=== PATIENT | male | born 1995 | race Caucasian/White ===

== ENCOUNTER → 2016-04-09 | Outpatient (CLI) | payer OTHER ==
--- NOTE | 2016-04-10 07:25 | XR ---
EXAMINATION TYPE: XR thoracic spine 2V DATE OF EXAM: 04/09/2016 5:36 PM CLINICAL HISTORY: pain TECHNIQUE: Frontal, lateral, and swimmer's view of thoracic spine are obtained. COMPARISON: None. FINDINGS: Thoracic spine show satisfactory alignment without evidence of acute fracture or dislocatio n. Mild scoliotic curvature is noted. Vertebral body heights are preserved. Disc spaces are well pre served. Visualized ribs are unremarkable. IMPRESSION: No acute fracture or dislocation is seen in the thoracic spine. ICD 10 NO FRACTURE, INIT IAL EVALUATION
--- NOTE | 2016-04-10 07:26 | XR ---
EXAMINATION TYPE: XR lumbosacral spine min 4V DATE OF EXAM: 04/09/2016 5:36 PM CLINICAL HISTORY: pain COMPARISON: NONE TECHNIQUE: Frontal, lateral, and oblique images of the lumbar spine are obtained. FINDINGS: There are 5 lumbar type vertebral bodies identified. The lumbar spine shows satisfactory alignment without evidence of acute fracture or dislocation. Vertebral body heights are within normal limits. Disc spaces are well preserved. The overlying soft tissue appears unremarkable. IMPRESSION: No acute fracture or dislocation is seen in the lumbar spine.ICD 10 NO FRACTURE, INITIAL EVALUATION
== END | disposition home or self-care (01) ==
LOC: RADXRMAIN 16:57
PROVIDERS: ATTEND Family Medicine
DX: M54.5 Low back pain (principal); M54.6 Pain in thoracic spine
CPT/HCPCS: 72070; 72110

== ENCOUNTER 2016-10-17 14:12 | Inpatient (IN) | payer MEDICAID, OTHER ==
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
[2016-10-17] MEDS ORDERED: LORazepam 1 MG TAB PO PRN (18:56)
[2016-10-17] MEDS ORDERED: MAG HYDROX/AL HYDROX/SIMETH 30 ML CUP PO PRN (18:56)
[2016-10-17] MEDS ORDERED: MAGNESIUM HYDROXIDE 2,400 MG/10 ML CUP PO PRN (18:56)
[2016-10-17] MEDS ORDERED: ACETAMINOPHEN TAB 325 MG TAB PO PRN (18:56)
[2016-10-17] MEDS ORDERED: ZIPRASIDONE 20 MG VIAL IM PRN (18:56)
[2016-10-17] MEDS ORDERED: LORazepam 2 MG/ML SYRINGE IM PRN (18:58)
[2016-10-17 19:17] LABS: Appearance,Urine Clear (Clear); Bilirubin,Urine Negative (Negative); Glucose,Urine (UA) Negative (Negative); Ketones,Urine Negative (Negative); Leukocyte Esterase,Urine Negative (Negative); Nitrite,Urine Negative (Negative); Protein,Urine Negative (Negative); Specific Gravity,Urine 1.019 (1.001-1.035); UA Billing (MACRO vs. MICRO) CHEM; Urobilinogen,Urine <2.0 mg/dL (<2.0)
[2016-10-17] MEDS: ALBUTEROL INHALER 60 PUFF/8 GM INHALER INHALATION PRN (21:41)
[2016-10-17] MEDS: SYMBICORT 80-4.5 MCG INHALER INHALATION SCH (21:42)
[2016-10-18 08:05] LABS: Basophils # (A) 0.1 k/uL (0-0.2); Basophils % (A) 1 %; CHCM 35.2; Eosinophils # (A) 0.2 k/uL (0-0.7); Eosinophils % (A) 4 %; HCT 44.9 % (39.0-53.0); HGB 15.1 gm/dL (13.0-17.5); Luc # (Auto) 0.16; Luc % (Auto) 3; Lymphocytes # (A) 1.6 k/uL (1.0-4.8); Lymphocytes % (A) 31 %; MCH 30.7 pg (25.0-35.0); MCHC 33.7 g/dL (31.0-37.0); MCV 91.2 fL (80.0-100.0); Mean Platelet Volume 7.7; Monocytes # (A) 0.3 k/uL (0-1.0); Monocytes % (A) 6 %; Neutrophils # (A) 2.7 k/uL (1.3-7.7); Neutrophils % (A) 55 %; RBC 4.92 m/uL (4.30-5.90); WBC (Perox) 5.17
[2016-10-18 08:35] LABS: ALT 29 U/L (21-72); AST 18 U/L (17-59); Alkaline Phosphatase 49 U/L (38-126); Anion Gap 11 mmol/L; Blood Urea Nitrogen 17 mg/dL (9-20); Calcium 9.8 mg/dL (8.4-10.2); Carbon Dioxide 24 mmol/L (22-30); Chloride 105 mmol/L (98-107); Glucose 86 mg/dL (74-99); Non-African American GFR(MDRD) >60 (>60 ml/min/1.73 sqM); Potassium 4.7 mmol/L (3.5-5.1); Sodium 140 mmol/L (137-145); Total Protein 7.8 g/dL (6.3-8.2)
[2016-10-18] MEDS: NICOTINE 14MG/24HR PATCH TRANSDERM SCH (08:55)
[2016-10-18] MEDS: SYMBICORT 80-4.5 MCG INHALER INHALATION SCH ×2 (09:01→21:21)
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
[2016-10-18] MEDS: CITALOPRAM HYDROBROMIDE 10 MG TAB PO SCH (11:05)
[2016-10-18 11:36] VITALS: BMI 16.5
--- NOTE | 2016-10-18 15:38 | P.CONS ---
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 Patient apparently has had some issues with substance abuse in the past The patient is fairly healthy without any medical problems Patient denies having any headaches blurry vision nausea vomiting chest pain difficulty breathing abdominal pain diarrhea urinary urgency or frequency Patient today states that he does not have any suicidal or homicidal ideations The only complaint is that he complains of intermittent headaches bitemporal q1 week however this is able to be resolved without any intervention Review of systems 14 point review of systems was done nonpertinent was manageable Physical exam Gen. appearance oriented 3 in no distress Neck is supple no JVD Lungs good air entry clear to auscultation no rhonchi or wheezing Heart S1-S2 heard regular rate and rhythm no murmurs appreciated Abdomen is soft nontender no organomegaly bowel sounds are intact Neurologically cranial nerves II-12 grossly intact no focal motor or sensory deficits noted Skin no abnormalities appreciated Assessment and plan #1 major depression with suicidal ideation para graft #2 pressure headaches #3 polysubstance use Plan Thank you for the consultation no further workup is needed patient is stable 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 History of Any Multi-Drug Resistant Organisms: None Reported Past Surgical History: Orthopedic Surgery Past Psychological History: ADD/ADHD, Anxiety, Depression Smoking Status: Current every day smoker Past Alcohol Use History: Rare Past Drug Use History: Marijuana Medications and Allergies Home Medications Medication Instructions Recorded Confirmed Type Albuterol Sulfate [Ventolin HFA] 2 puff INHALATION RT-Q4H PRN 07/28/13 10/17/16 History Fluticasone/Salmeterol [Advair 1 puff INHALATION RT-BID 10/17/16 10/17/16 History 250-50 Diskus] busPIRone HCl [Buspar] 5 mg PO BID 10/17/16 10/17/16 History Allergies Allergy/AdvReac Type Severity Reaction Status Date / Time No Known Allergies Allergy Verified 10/17/16 14:45 Physical Exam Vitals: Vital Signs Temp Pulse Pulse Resp BP BP Pulse Ox 10/18/16 06:45 98.2 F 48 L 16 98/56 95 10/17/16 21:38 70 16 114/78 10/17/16 18:52 98.7 F 72 15 96/70 15 L 10/17/16 17:58 65 18 105/64 97 Intake and Output 10/18/16 10/18/16 10/18/16 06:59 14:59 22:59 Other: Weight 50.802 kg Patient Weight 10/19/16 06:59 Weight 50.802 kg Results CBC & Chem 7: 10/18/16 07:39 10/18/16 07:39
[2016-10-18] MEDS: MELATONIN 3 MG TABLET PO SCH (20:08)
[2016-10-18] MEDS: ALBUTEROL INHALER 60 PUFF/8 GM INHALER INHALATION PRN (21:21)
[2016-10-19] MEDS: NICOTINE 14MG/24HR PATCH TRANSDERM SCH (08:25)
[2016-10-19] MEDS: CITALOPRAM HYDROBROMIDE 10 MG TAB PO SCH (08:26)
[2016-10-19] MEDS: ALBUTEROL INHALER 60 PUFF/8 GM INHALER INHALATION PRN ×3 (09:31→22:10)
[2016-10-19] MEDS: SYMBICORT 80-4.5 MCG INHALER INHALATION SCH ×2 (09:32→21:51)
--- NOTE | 2016-10-19 10:45 | P.PN ---
Progress Note - Text Interval History: Patient is a 21-year-old male who is seen today and he reports that he is doing much better, he states he slept well last evening stating it felt like he slept for a week. Patient reports his anxiety is much less as well as his depression. He states he is feeling much better and no longer having any suicidal thoughts. Patient states that he has no side effects from the medication. Patient states that he spoke with the social problems specialist regarding a family meeting and wants to have it on the day of discharge. Mental Status: Appearance/Attitude: Patient is neatly groomed, makes good eye contact and is cooperative. Behavior: Patient does not display any psychomotor agitation or retardation. Speech/Language: Patient's speech is spontaneous and of normal volume and rhythm and he is coherent. Thought Process: Patient is goal-directed and there is no evidence of circumstantial or tangential thought and no loose associations or flight of ideas. Thought Content: Patient denies any auditory or visual hallucinations no delusions or paranoid ideation were elicited. The patient reports that he is feeling much less anxious and depressed and states that he slept well last evening. He reports no side effects from the medication. Suicidal/Homicidal Ideation: Patient denies any current suicidal or homicidal ideation. Sensorium/Cognition: Patient is alert and oriented to person, place, and time and his memory is grossly intact. Mood/Affect: Patient's mood is brighter and his affect is appropriate. Insight/Judgement: Patient's insight and judgment are fair. Assessment: Patient reports he is doing much better, having slept well last night as well as feeling much less anxious and depressed. He states that he is no longer having any suicidal ideation and states that he is feeling calm or than he has before. He reports no side effects from the medication. Plan: Patient will continue on Celexa 10 mg and melatonin 3 mg at bedtime and we discussed possible discharge early in the week and he was agreeable with this. Patient reports he will be turning to live with his ex-girlfriend's parents.
[2016-10-19] MEDS: MELATONIN 3 MG TABLET PO SCH (20:06)
[2016-10-19] MEDS ORDERED: HYDROCORTISONE 1% CREAM 30 GM TUBE TOPICAL PRN (20:19)
[2016-10-19] MEDS: NICOTINE POLACRILEX 2 MG GUM BUCCAL PRN (21:30)
[2016-10-20] MEDS: CITALOPRAM HYDROBROMIDE 10 MG TAB PO SCH (08:45)
[2016-10-20] MEDS: ALBUTEROL INHALER 60 PUFF/8 GM INHALER INHALATION PRN ×2 (09:10→21:52)
[2016-10-20] MEDS: SYMBICORT 80-4.5 MCG INHALER INHALATION SCH ×2 (09:11→21:43)
[2016-10-20] MEDS: NICOTINE POLACRILEX 2 MG GUM BUCCAL PRN ×3 (11:12→19:46)
[2016-10-20] MEDS: DIVALPROEX ER 500 MG TAB.ER.24H PO SCH (20:48)
[2016-10-20] MEDS: LORazepam 1 MG TAB PO PRN (21:03)
--- NOTE | 2016-10-20 21:54 | P.PN ---
Subjective Principal diagnosis: Bipolar 1 disorder, most recent episode depressed severe without psychotic features Patient is 21 year old male admitted after telling his counselor that he was thinking of committing suicide by shooting himself with a gun. Patient reports that he has been depressed due to multiple stressors including the of a cousin "who was like my sister" in September of 2016." Patient was seeing both an OP counselor and psychiatrist and reports becoming extremely anxious on Prozac within a few days and was switched Buspar with no benefits after a few weeks. He reports some benefits from the counselor. Patient reports after being on Celexa for 2-days in the hospital he feels "fantastic" and like he is ready to leave the hospital. He states while his depression is still present, it has improved dramatically. A screening for a history of past brian is positive with patient endorsing full criteria for multiple manic episodes in high where patient describes in his own words: "There weeks at a time I was so happy people couldn't get me down" "I got suspended from school a lot because I was constantly getting into trouble even though I didn't mean to" "Sometimes I would go from being so happy others just so mad I would punch polk and stuff" "It was like being hailey of world" During these times of euphoria, patient reports he could go weeks on 3-4 hours of sleep sometimes 2-3 days with zero sleep before "crashing and burning only to get back up and do it again." Patient reports due to his behavior and lack of control he was only able to complete 11th grade and has not completed a GED. At this time, patient has no insight in his depressive episode, and has no coping skills for loss of his cousin. He states that he is no longer suicidal but admits he can provide no reason as to why. Objective - Vital Signs Vital signs: Vital Signs Temp 98.7 F 10/19/16 10:01 Pulse 68 10/19/16 20:07 Resp 15 10/19/16 10:01 BP 129/89 10/19/16 20:07 Pulse Ox 100 10/19/16 10:01 Intake & Output 10/19/16 10/20/16 10/20/16 18:59 06:59 18:59 Weight 48.9 kg - Psychiatric Psychiatric Comment(s): MENTAL STATUS EXAM: Appearance: alert, well groomed, appears stated age, steady gait Behavior: no psychomotor agitation or psychomotor retardation, fair eye contact Attitude: cooperative Speech: normal rate, rhythm, fluency, articulation; and prosody; primary language: Swedish Mood: calm, euthymic Affect: mildly constricted incongruent to mood Thought processes: linear, organized Thought content: patient does not appear to be responding to internal stimuli ; patient denies auditory and visual hallucinations, no delusions and is not exhibiting in overt signs of psychosis, denies HI. Patient denies SI at present but cannot provide any details as to what has changed Insight: fair Judgment: fair Cognitive: oriented to all 4 spheres, normal intelligence - Labs CBC & Chem 7: 10/18/16 07:39 10/18/16 07:39 Assessment and Plan (1) Bipolar I disorder, most recent episode depressed, severe without psychotic features Status: Acute (2) Complicated bereavement Status: Acute Plan: PLAN: 1. Discontinue Celexa due to probable brian from SSRI's in the past a euphoric change in mood 2 days after starting Celexa 2. Start Depakote ER 500-mg PO QHS with plan to titrate up to a therapeutic level taking into account patient's ability (BMI=15.9) 3. Patient has a meeting with his corporate compliance officer on 10/22/2016, patient reports his officer knows he is currently hospitalized because was told his parole is being revoked due to a positive UDS for THC 4. Patient requested treatment team contact his OP therapist to give her an update on his status as he apparently went to the hold on her bequest 5. Continue hospitalization, patient has poor insight and at high risk for self harm given recent suicidal thoughts with plan, tragic of a close family member circa September 2016, and finding out he may go be incarcerated for up to 7- years post discharge Time with Patient: Greater than 30
[2016-10-20] MEDS: MELATONIN 3 MG TABLET PO SCH (22:30)
[2016-10-21] MEDS: SYMBICORT 80-4.5 MCG INHALER INHALATION SCH ×2 (09:12→21:15)
[2016-10-21] MEDS: ALBUTEROL INHALER 60 PUFF/8 GM INHALER INHALATION PRN ×2 (09:12→21:15)
[2016-10-21] MEDS: NICOTINE POLACRILEX 2 MG GUM BUCCAL PRN (15:30)
[2016-10-21] MEDS: LORazepam 1 MG TAB PO PRN ×2 (16:30→23:08)
--- NOTE | 2016-10-21 18:55 | P.PN ---
Subjective Principal diagnosis: Bipolar 1 disorder, most recent episode depressed severe without psychotic features 10/21/2016: Patient is more open today about his feelings of hopelessness and depressed mood. He states he dreads what is to come. Patient reports a near-escalation with another patient last night who was manic and disruptive, came into patient' s room, and startled him. He reports stopping himself from acting out. Patient reports he informed staff who resolved the situation. Patient was then stated on his QHS dose of Depakote ER which he states helped him sleep "for the best in a long long time." Patient denies feeling drowsy this morning. Patient asked several questions about bipolar disorder and whether he would have access to his prescription medication while incarcerated all of which were answered. 10/20/2016: Patient is 21 year old male admitted after telling his counselor that he was thinking of committing suicide by shooting himself with a gun. Patient reports that he has been depressed due to multiple stressors including the of a cousin "who was like my sister" in September of 2016." Patient was seeing both an OP counselor and psychiatrist and reports becoming extremely anxious on Prozac within a few days and was switched Buspar with no benefits after a few weeks. He reports some benefits from the counselor. Patient reports after being on Celexa for 2-days in the hospital he feels "fantastic" and like he is ready to leave the hospital. He states while his depression is still present, it has improved dramatically. A screening for a history of past brian is positive with patient endorsing full criteria for multiple manic episodes in high where patient describes in his own words: "There weeks at a time I was so happy people couldn't get me down" "I got suspended from school a lot because I was constantly getting into trouble even though I didn't mean to" "Sometimes I would go from being so happy others just so mad I would punch polk and stuff" "It was like being hailey of world" During these times of euphoria, patient reports he could go weeks on 3-4 hours of sleep sometimes 2-3 days with zero sleep before "crashing and burning only to get back up and do it again." Patient reports due to his behavior and lack of control he was only able to complete 11th grade and has not completed a GED. At this time, patient has no insight in his depressive episode, and has no coping skills for loss of his cousin. He states that he is no longer suicidal but admits he can provide no reason as to why. Objective - Vital Signs Vital signs: Vital Signs Temp 97.7 F 10/21/16 06:28 Pulse 52 L 10/21/16 06:28 Resp 15 10/21/16 06:28 BP 105/55 10/21/16 06:28 Pulse Ox 100 10/19/16 10:01 - Labs CBC & Chem 7: 10/18/16 07:39 10/18/16 07:39 Assessment and Plan (1) Bipolar I disorder, most recent episode depressed, severe without psychotic features Status: Acute (2) Complicated bereavement Status: Acute Plan: PLAN: * Continue Depakote ER 500-mg PO QHS with plan to titrate up to a therapeutic level taking into account patient's ability (BMI=15.9) * check a Depakote level, CBC, CMP in 2-3 days * Patient has a meeting with his chief diversity officer on 10/22/2016, patient reports his officer knows he is currently hospitalized because was told his parole is being revoked due to a positive UDS for THC * Patient requested treatment team contact his OP therapist to give her an update on his status as he apparently went to the hold on her bequest * Continue hospitalization, patient has poor insight and at high risk for self harm given recent suicidal thoughts with plan, tragic of a close family member circa September 2016, and finding out he may go be incarcerated for up to 7- years post discharge
[2016-10-21] MEDS: DIVALPROEX ER 500 MG TAB.ER.24H PO SCH (20:27)
[2016-10-21] MEDS: MELATONIN 3 MG TABLET PO SCH (20:27)
[2016-10-22 07:00] VITALS: RESP 16
[2016-10-22] MEDS: SYMBICORT 80-4.5 MCG INHALER INHALATION SCH ×2 (09:07→19:47)
[2016-10-22] MEDS: ALBUTEROL INHALER 60 PUFF/8 GM INHALER INHALATION PRN ×3 (09:08→19:46)
[2016-10-22] MEDS: LORazepam 1 MG TAB PO PRN ×2 (09:10→21:49)
--- NOTE | 2016-10-22 14:26 | P.PN ---
Subjective Principal diagnosis: Bipolar 1 disorder, most recent episode depressed severe without psychotic features Patient continues to show signs of improvement on Depakote ER. He reports sleeping and eating better. He is interacting and socializing on the unit more than at time of admission. Pschoeducation was again provided upon request regarding bipolar disorder, Depakote therapy including risks/benefits, importance of medication compliance, when to seek emergency medical help, and patient's updated disposition. Patient has worked with SW to contact mom who will be coming to unit for family meeting tomorrow. If meeting goes well, mom reports based on previous visits she feels patient is doing much better and is safe to discharge into her care, but she is agreeable with the treatment teams request of a family meeting prior to such. Patient is very excited at this news. He denies any new complaints. Objective - Vital Signs Vital signs: Vital Signs Temp 97.8 F 10/22/16 06:59 Pulse 84 10/22/16 06:59 Resp 16 10/22/16 06:59 BP 95/68 10/22/16 06:59 Pulse Ox 100 10/19/16 10:01 - Psychiatric Psychiatric Comment(s): MENTAL STATUS EXAM: Appearance: alert, well groomed, appears stated age, steady gait Behavior: mild PMA Attitude: cooperative Speech: normal rate, rhythm, fluency, articulation; and prosody; primary language: Occitan Mood: euthymic, mildly anxious Affect: congruent with stated mood and has full range Thought processes: linear, organized Thought content: patient does not appear to be responding to internal stimuli; patient denies auditory and visual hallucinations, no delusions and is not exhibiting in overt signs of psychosis, denies SI/HI Insight: improving Judgment: improving Cognitive: oriented to all 4 spheres, normal intelligence - Labs CBC & Chem 7: 10/18/16 07:39 10/18/16 07:39 Assessment and Plan (1) Bipolar I disorder, most recent episode depressed, severe without psychotic features Narrative/Plan: * continue Depakote 500-mg PO QHS * Depakote level tomorrow QAM * CBC and CMP tomorrow QAM * family meeting scheduled for tomorrow with mother; SW spoke with mom today who is agreeable to discharge into her care if meeting goes well * provisional discharge tomorrow, patient has been compliant with medications, required no emergency medications, and has been proactive in his recovery attending groups and therapies Status: Acute (2) Complicated bereavement Status: Acute
[2016-10-22] MEDS: NICOTINE POLACRILEX 2 MG GUM BUCCAL PRN (14:51)
[2016-10-22] MEDS: MELATONIN 3 MG TABLET PO SCH (21:05)
[2016-10-22] MEDS: DIVALPROEX ER 500 MG TAB.ER.24H PO SCH (21:05)
[2016-10-23 06:58] VITALS: BP 107/56; PULSE 74; TEMP 98.2
[2016-10-23] MEDS: LORazepam 1 MG TAB PO PRN (08:42)
[2016-10-23] MEDS: NICOTINE POLACRILEX 2 MG GUM BUCCAL PRN (08:43)
[2016-10-23] MEDS: SYMBICORT 80-4.5 MCG INHALER INHALATION SCH (09:04)
[2016-10-23 09:40] LABS: ALT 33 U/L (21-72); AST 17 U/L (17-59); Alkaline Phosphatase 60 U/L (38-126); Anion Gap 10 mmol/L; Basophils # (A) 0.1 k/uL (0-0.2); Basophils % (A) 1 %; Blood Urea Nitrogen 16 mg/dL (9-20); CHCM 34.7; Calcium 9.8 mg/dL (8.4-10.2); Carbon Dioxide 27 mmol/L (22-30); Chloride 103 mmol/L (98-107); Eosinophils # (A) 0.2 k/uL (0-0.7); Eosinophils % (A) 3 %; Glucose 121 mg/dL (74-99); HCT 43.9 % (39.0-53.0); HDW 2.43; HGB 15.3 gm/dL (13.0-17.5); Luc # (Auto) 0.15; Luc % (Auto) 3; Lymphocytes # (A) 1.9 k/uL (1.0-4.8); Lymphocytes % (A) 37 %; MCH 31.2 pg (25.0-35.0); MCHC 34.8 g/dL (31.0-37.0); MCV 89.7 fL (80.0-100.0); Mean Platelet Volume 7.5; Monocytes # (A) 0.4 k/uL (0-1.0); Monocytes % (A) 8 %; Neutrophils # (A) 2.4 k/uL (1.3-7.7); Neutrophils % (A) 48 %; Non-African American GFR(MDRD) >60 (>60 ml/min/1.73 sqM); Potassium 5.1 mmol/L (3.5-5.1); RDW 13.1 % (11.5-15.5); Sodium 140 mmol/L (137-145); Total Bilirubin 0.5 mg/dL (0.2-1.3); Total Protein 7.5 g/dL (6.3-8.2); WBC 5.1 k/uL (3.8-10.6); WBC (Perox) 5.11
--- NOTE | 2016-10-23 12:50 | P.DS ---
Providers Date of admission: 10/17/16 17:50 Expected date of discharge: 10/23/16 Attending physician: Toan Deleon DO Consults: 10/17/16 18:56 Consult Physician Routine Consulting Provider: Sultana Cardenas Consult Reason/Comments: follow up up H & P Do you want consulting provider notified?: Yes Primary care physician: Mariam Rodríguez - Discharge Diagnosis(es) (1) Bipolar I disorder, most recent episode depressed, severe without psychotic features -stop Celexa -Depakote ER 500-mg PO QHS #14 1R prescribed -Depakote level 38.9 at time of discharge Current Visit: Yes Status: Acute Priority: High (2) Complicated bereavement Patient provided with grief counseling resources prior to discharge by Current Visit: Yes Status: Acute Priority: High Hospital Course: Patient admitted after having suicidal thoughts of wanting to shoot self with a gun. Patient was either anxious or melancholic during his initial few days inpatient. Precipitating factors to suicidal ideation involve a mixture of grief , severe depression, and substance abuse. The recent of a cousin whom patient identifies with as "practically my sister" suddenly in September of 2016. Patient also has an upcoming meeting with his PO regarding a positive UDS for THC. After his second day of being on Celexa, patient had an abrupt euphoric shift in mood with a bright, reactive affect. He reported a decreased need for sleep for 2-nights in a row. Patient was screened and is able to endorse at least two past manic episodes when he was in high school and multiple hypomanic episodes. Celexa was discontinued and Depkaote ER 500mg PO QHS. Patient tolerated it well with no complaint of any adverse side effects or reactions. Patient's sleep pattern returned to baseline. Throughout hospital course, patient did not require any emergency medication and attended most group therapies and recreational actives. At time of discharge, he denies SI/HI/ AVH, no signs of brian or hypomania. Patient will be staying with parent. A family meeting was done just prior to discharge. See documentation. ~ Toan Deleon DO Patient Condition at Discharge: Fair Plan - Discharge Summary New Discharge Prescriptions: New Albuterol Inhaler [Ventolin Hfa Inhaler] 2 puff INHALATION RT-Q4H PRN puff PRN Reason: Shortness Of Breath Divalproex ER [Depakote ER] 500 mg PO HS #14 tab Hydrocortisone Cream [Hydrocortisone 1% Cream] 1 applic TOPICAL BID PRN dose PRN Reason: Skin Irritation Mag Hydrox/Al Hydrox/Simeth [Maalox] 30 ml PO Q4HR PRN dose PRN Reason: Gi Upset Magnesium Hydroxide [Milk of Magnesia Concentrate] 2,400 mg PO DAILY PRN dose PRN Reason: Constipation Nicotine Polacrilex [Nicorette] 2 mg BUCCAL Q4HR PRN pieceofgum PRN Reason: Nicotine Cravings Continue Albuterol Sulfate [Ventolin HFA] 2 puff INHALATION RT-Q4H PRN PRN Reason: Shortness Of Breath busPIRone HCl [Buspar] 5 mg PO BID Fluticasone/Salmeterol [Advair 250-50 Diskus] 1 puff INHALATION RT-BID Discharge Medication List Albuterol Sulfate [Ventolin HFA] 2 puff INHALATION RT-Q4H PRN 07/28/13 [History] Fluticasone/Salmeterol [Advair 250-50 Diskus] 1 puff INHALATION RT-BID 10/17/16 [History] busPIRone HCl [Buspar] 5 mg PO BID 10/17/16 [History] Albuterol Inhaler [Ventolin Hfa Inhaler] 2 puff INHALATION RT-Q4H PRN puff [Rx] Divalproex ER [Depakote ER] 500 mg PO HS #14 tab 10/23/16 [Rx] Hydrocortisone Cream [Hydrocortisone 1% Cream] 1 applic TOPICAL BID PRN dose [Rx] Mag Hydrox/Al Hydrox/Simeth [Maalox] 30 ml PO Q4HR PRN dose 10/23/16 [Rx] Magnesium Hydroxide [Milk of Magnesia Concentrate] 2,400 mg PO DAILY PRN dose 10/23/16 [Rx] Nicotine Polacrilex [Nicorette] 2 mg BUCCAL Q4HR PRN pieceofgum 10/23/16 [Rx] Follow up Appointment(s)/Referral(s): [facility] [Outside] - 10/27/16 9:00 am (10/27 @ 0900 with Shaquille 10/30 @ [address] Smith) Patient Instructions/Handouts: How to Stop Smoking (DC), Bipolar Disorder (DC) , Bipolar Disorder (GEN) Activity/Diet/Wound Care/Special Instructions: Remove all weapons and firearms from the home; Refrain from using street drugs and alcohol; Regular Diet; Activity as tolerated; Follow-up with your PCP in 1- 2 days; Keep all scheduled follow-up appointments for continuity of care; Any problems call your PCP or the Crisis Line at or 474 in case of emergency. Discharge Disposition: HOME SELF-CARE
== END 2016-10-23 10:17 | disposition home or self-care (01) | DRG 885 ==
LOC: EC 14:12 → 3MHU 17:50
PROVIDERS: ADMIT Psychiatry & Neurology Psychiatry; ATTEND Psychiatry & Neurology Psychiatry
DX: F31.4 Bipolar disorder, current episode depressed, severe, without psychotic features (principal); R45.851 Suicidal ideations; M41.9 Scoliosis, unspecified; F41.8 Other specified anxiety disorders; F17.200 Nicotine dependence, unspecified, uncomplicated; F12.90 Cannabis use, unspecified, uncomplicated; F43.21 Adjustment disorder with depressed mood; J45.909 Unspecified asthma, uncomplicated; Z62.810 Personal history of physical and sexual abuse in childhood; Z65.3 Problems related to other legal circumstances; Z79.899 Other long term (current) drug therapy; Z85.6 Personal history of leukemia; Z91.5 Personal history of self-harm
CPT/HCPCS: 80053; 80164; 80306; 81003; 82075; 84443; 85025; 94640; 99284

== ENCOUNTER → 2017-07-14 | Outpatient (CLI) | payer OTHER ==
--- NOTE | 2017-07-14 12:04 | US ---
EXAMINATION TYPE: US abdomen complete DATE OF EXAM: 07/14/2017 COMPARISON: NONE CLINICAL HISTORY: R10.11 Int. R upper Quad pain. Exam slightly limited due to overlying bowel gas. Ab dominal pain, nausea/vomiting EXAM MEASUREMENTS: Liver Length: 13.7 cm Gallbladder Wall: 0.2 cm CBD: 0.2 cm Spleen: 7.9 cm Right Kidney: 10.8 x 3.5 x 4.4 cm Left Kidney: 9.9 x 3.8 x 3.7 cm Pancreas: Obscured by bowel gas, visualized portions wnl Liver: wnl Gallbladder: wnl Evidence for sonographic Maya's sign: No CBD: wnl Spleen: wnl Right Kidney: No hydronephrosis or masses seen Left Kidney: No hydronephrosis or masses seen Upper IVC: wnl Abd Aorta: wnl There is no ascites. The liver is homogenous. The intrahepatic portion of the IVC and proximal abdominal aorta are within normal limits. There is no evidence of cholelithiasis. Common bile duct is unremarkable. The visu alized portions of the pancreas are homogenous. The spleen is unremarkable. Kidneys are symmetric a nd free of hydronephrosis. No renal lesions are seen, cortical medullary differentiation is maintain ed. IMPRESSION: Normal exam
== END | disposition home or self-care (01) ==
LOC: RADUSMAIN 09:34
PROVIDERS: ATTEND Family Medicine
DX: R10.11 Right upper quadrant pain (principal); J45.30 Mild persistent asthma, uncomplicated
CPT/HCPCS: 76700; 94060; 94726; 94729

== ENCOUNTER → 2017-12-08 | Outpatient (CLI) | payer OTHER | END | disposition home or self-care (01) | LOC: LABWHC1 16:17 | PROVIDERS: ATTEND Family Medicine | DX: R05 Cough (principal); R50.9 Fever, unspecified | CPT/HCPCS: 87502; G0463; 99202 ==

== ENCOUNTER → 2018-05-25 | Outpatient (CLI) | payer OTHER ==
--- NOTE | 2018-05-25 15:06 | US ---
EXAMINATION TYPE: US abdomen complete DATE OF EXAM: 05/25/2018 COMPARISON: US CLINICAL HISTORY: R10.9 Abd pain. Intermittent, para umbilical pain post laparoscopy/appendectomy si 2017 EXAM MEASUREMENTS: Liver Length: 15.9 cm Gallbladder Wall: 0.2 cm CBD: 0.3 cm Spleen: 8.3 cm Right Kidney: 10.4 x 4.5 x 3.2 cm Left Kidney: 9.8 x 4.2 x 3.2 cm Pancreas: wnl Liver: wnl Gallbladder: thicker wall and small lumen may indicate partially contracted gallbladder Evidence for sonographic Maya's sign: no CBD: wnl Spleen: wnl Right Kidney: No hydronephrosis or masses seen Left Kidney: No hydronephrosis or masses seen Upper IVC: wnl Abd Aorta: wnl At Patient's area of pain: no hernia is seen with/without Valsalva Maneuvers at para umbilical regio n. IMPRESSION: 1. No suspicious acute changes ultrasound abdomen
--- NOTE | 2018-05-26 16:35 | MR ---
EXAMINATION TYPE: MR shoulder RT wo con DATE OF EXAM: 05/25/2018 COMPARISON: None HISTORY: Rt. shoulder pain TECHNIQUE: Multiplanar, multisequence imaging of the right shoulder is performed without contrast. FINDINGS: Rotator Cuff: There is mild supraspinatus tendinopathy with signal alteration of the distal myotendin ous junction and insertional fibers. Minimal infraspinatus arthropathy is also seen with bursal surfa ce fiber fraying near the myotendinous junction. There is a small bursal surface 8 mm partial-thickne ss tear at the myotendinous junction of the infraspinatus. The teres minor and subscapularis are unre markable and in signal and volume. Acromioclavicular Joint: Minimal capsular hypertrophy is seen relating to very mild acromioclavicular arthropathy. Glenohumeral Joint: No significant joint space narrowing. Labrum: The labrum appears grossly intact given limitation of non-arthrogram study. Biceps Tendon: The long head of biceps is in normal location within bicipital groove. Bone marrow signal: No focal abnormal marrow signal is appreciated. Other: Nonenlarged axillary lymph nodes measure up to 5 mm in short axis. Small amount of fluid is se en within the subdeltoid/subacromial bursa and subcoracoid bursa. IMPRESSION: 1. Low-grade partial-thickness bursal surface tear of the moderate junction of the infraspinatus hussein uring 8 mm. 2. Mild supraspinatus and minimal infraspinatus tendinopathy. 3. Small amount of fluid in the subcoracoid and subacromial/subdeltoid bursa that may clinically kenneth elate with bursitis.
== END ==
LOC: RADUSWWP 08:00
PROVIDERS: ATTEND Family Medicine
DX: M25.511 Pain in right shoulder (principal); S46.811A Strain of other muscles, fascia and tendons at shoulder and upper arm level, right arm, initial encounter; M75.81 Other shoulder lesions, right shoulder; R10.9 Unspecified abdominal pain
CPT/HCPCS: 76700

== ENCOUNTER → 2018-08-27 | Outpatient (CLI) | payer OTHER ==
--- NOTE | 2018-08-27 15:11 | NM ---
EXAMINATION TYPE: NM hepatobiliary w EF DATE OF EXAM: 08/27/2018 COMPARISON: Ultrasound abdomen 05/25/2018 HISTORY: Nausea TECHNIQUE: After the intravenous administration of 4.88 mCi Tc 99m Mebrofenin hepatobiliary scintigra phy is performed. Immediate images post injection. FINDINGS: There is satisfactory initial accumulation of tracer by the liver. The gallbladder is visualized wit hin 20 minutes. The small bowel activity is noted within a minutes. At one hour 8 ounces of oral en sure plus is given to mimic CCK and gallbladder ejection fraction is calculated at 75 %, in the abby l range. Therefore there is no scintigraphic evidence of cystic or common bile duct obstruction to s uggest acute cholecystitis or gallbladder dyskinesia. IMPRESSION: Exam is within normal limits.
== END | disposition home or self-care (01) ==
LOC: RADNMMAIN 13:05
PROVIDERS: ATTEND Family Medicine
DX: R11.0 Nausea (principal); R10.9 Unspecified abdominal pain
CPT/HCPCS: 78226; A9537

== ENCOUNTER → 2018-11-03 | Outpatient (CLI) | payer OTHER ==
[2018-11-03 16:19] LABS: Basophils # (A) 0.1 k/uL (0-0.2); Basophils % (A) 1 %; Eosinophils # (A) 0.1 k/uL (0-0.7); Eosinophils % (A) 1 %; HCT 42.8 % (39.0-53.0); HGB 14.9 gm/dL (13.0-17.5); Lymphocytes # (A) 0.9 k/uL (1.0-4.8); Lymphocytes % (A) 12 %; MCHC 34.9 g/dL (31.0-37.0); MCV 91.7 fL (80.0-100.0); Mean Platelet Volume 7.5; Monocytes # (A) 0.4 k/uL (0-1.0); Monocytes % (A) 6 %; Neutrophils # (A) 5.5 k/uL (1.3-7.7); Neutrophils % (A) 79 %; Platelet Count 210 k/uL (150-450); RBC 4.67 m/uL (4.30-5.90); RDW 15.4 % (11.5-15.5); WBC 6.9 k/uL (3.8-10.6)
[2018-11-03 21:28] LABS: Erythrocyte Sedimentation Rate 3 mm/hr (0-15)
[2018-11-04 06:22] LABS: Hepatitis A Antibody IgM Non-Reactive (Non-Reactive); Hepatitis B Core IgM Non-Reactive (Non-Reactive); Hepatitis B Surface Antigen Non-Reactive (Non-Reactive); Hepatitis C IgG Antibody Non-Reactive (Non-Reactive)
== END | disposition home or self-care (01) ==
LOC: LABWHC1 15:45
PROVIDERS: ATTEND Nurse Practitioner
DX: R10.30 Lower abdominal pain, unspecified (principal); F19.11 Other psychoactive substance abuse, in remission
CPT/HCPCS: 36415; 80074; 85025; 85652; 86140

== ENCOUNTER 2019-01-06 15:58 | Emergency (ER) | payer OTHER ==
[2019-01-06 16:08] VITALS: BP 120/69; PULSE 86; RESP 18; TEMP 98.1
[2019-01-06] MEDS ORDERED: ONDANSETRON 4 MG/2 ML VIAL IVP STA (16:19)
[2019-01-06] MEDS ORDERED: MORPHINE SULFATE 2 MG/ML SYRINGE IVP STA (16:19)
[2019-01-06] MEDS ORDERED: SODIUM CHLORIDE 0.9% 1,000 ML IV STA (16:19)
[2019-01-06] MEDS ORDERED: PANTOPRAZOLE 40 MG/10 ML VIAL IVP STA (16:19)
--- NOTE | 2019-01-06 16:24 | ED ---
Abdominal Pain HPI - General Chief Complaint: Abdominal Pain Stated Complaint: POSS KIDNEY STONE Time Seen by Provider: 01/06/19 16:15 Source: patient Mode of arrival: ambulatory Limitations: no limitations - History of Present Illness Initial Comments: Patient is a 23-year-old male with history of kidney stones is presenting to the emergency department with a chief complaint of abdominal pain. He reports onset of abdominal pain about 1 week ago that has gradually increased in severity. Patient reports the pain initially starts in the left lower back and left flank region and radiates to the front along the left lower quadrant and groin region. Patient reports today he went to urinate and he had gross hematuria. Patient states the pain is exacerbated with palpation in the left lower quadrant or left flank. Patient denies any nausea or vomiting or diarrhea. Patient reports the pain is a 10 and throbbing in nature. Patient denies any night sweats fevers or chills. Patient denies any testicular swelling, pain, penile discharge or pain. - Related Data Home Medications Medication Instructions Recorded Confirmed Albuterol Sulfate [Ventolin HFA] 2 puff INHALATION RT-Q4H PRN 07/28/13 10/17/16 Fluticasone/Salmeterol [Advair 1 puff INHALATION RT-BID 10/17/16 10/17/16 250-50 Diskus] busPIRone HCl [Buspar] 5 mg PO BID 10/17/16 10/17/16 Previous Rx's Medication Instructions Recorded Albuterol Inhaler [Ventolin Hfa 2 puff INHALATION RT-Q4H PRN puff 10/23/16 Inhaler] Divalproex ER [Depakote ER] 500 mg PO HS #14 tab 10/23/16 Hydrocortisone Cream 1 applic TOPICAL BID PRN dose 10/23/16 [Hydrocortisone 1% Cream] Mag Hydrox/Al Hydrox/Simeth 30 ml PO Q4HR PRN dose 10/23/16 [Maalox] Magnesium Hydroxide [Milk of 2,400 mg PO DAILY PRN dose 10/23/16 Magnesia Concentrate] Nicotine Polacrilex [Nicorette] 2 mg BUCCAL Q4HR PRN pieceofgum 10/23/16 Ondansetron Odt [Zofran Odt] 4 mg PO Q8HR PRN #10 tab 01/06/19 Tamsulosin [Flomax] 0.4 mg PO DAILY #7 cap 11/28/19 Allergies Allergy/AdvReac Type Severity Reaction Status Date / Time nicotine Allergy Rash/Hives Verified 01/06/19 16:05 Review of Systems ROS Statement: Those systems with pertinent positive or pertinent negative responses have been documented in the HPI. ROS Other: All systems not noted in ROS Statement are negative. 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 History of Any Multi-Drug Resistant Organisms: None Reported Past Surgical History: Orthopedic Surgery Past Psychological History: ADD/ADHD, Anxiety, Depression Smoking Status: Current every day smoker Past Alcohol Use History: None Reported Past Drug Use History: Marijuana General Exam Limitations: no limitations General appearance: alert, in no apparent distress Head exam: Present: atraumatic, normocephalic, normal inspection Eye exam: Present: normal appearance, PERRL, EOMI Pupils: Present: normal accommodation ENT exam: Present: normal exam, normal oropharynx, mucous membranes moist Neck exam: Present: normal inspection, full ROM Respiratory exam: Present: normal lung sounds bilaterally Cardiovascular Exam: Present: regular rate, normal rhythm, normal heart sounds GI/Abdominal exam: Present: soft, tenderness (Left upper quadrant, left lower quadrant, left flank.), normal bowel sounds. Absent: distended, guarding, rebound, rigid exam: Present: normal inspection. Absent: testicular tenderness, urethral discharge, scrotal swelling, vertical testicular lie, circumcision Extremities exam: Present: normal inspection, full ROM Back exam: Present: normal inspection, full ROM, CVA tenderness (L) Neurological exam: Present: alert, oriented X3 Psychiatric exam: Present: normal affect, normal mood Skin exam: Present: warm, dry, intact, normal color Course Vital Signs 01/06/19 16:05 Temperature 98.1 F Pulse Rate 86 Respiratory 18 Rate Blood Pressure 120/69 O2 Sat by Pulse 100 Oximetry Medical Decision Making - Medical Decision Making Patient is a 23-year-old male with history of kidney stones presenting to emergency department with chief complaint of abdominal pain. On exam patient has left CVA tenderness along with left flank pain and left lower quadrant pain. exam is unremarkable. CBC and CMP unremarkable. UA is indicative of hematuria. According to the patient this appears that a kidney stone although with increased severity. According to the HPI, physical exam and laboratory results suspect the patient has a kidney stone. Patient given analgesia and antiemetics in the ED. Patient will be discharged with a Tylenol 3 starter pack. Patient was about the possible side effects of the medication. Patient given Zofran and discharged with a prescription. Our evaluation patient reports improvement in his symptoms as able to keep food down. Gonorrhea and chlamydia pending. Patient advised to follow-up with urology. Strict return parameters were thoroughly discussed the patient was understanding and agreeable. Case discussed with physician. - Lab Data Result diagrams: 01/06/19 16:30 01/06/19 16:30 Lab Results 01/06/19 01/06/19 01/06/19 Range/Units 16:30 16:30 Unknown WBC 4.0 (3.8-10.6) k/uL RBC 4.73 (4.30-5.90) m/uL Hgb 14.7 (13.0-17.5) gm/dL Hct 41.3 (39.0-53.0) % MCV 87.3 (80.0-100.0) fL MCH 31.0 (25.0-35.0) pg MCHC 35.5 (31.0-37.0) g/dL RDW 12.3 (11.5-15.5) % Plt Count 208 (150-450) k/uL Neutrophils % 52 % Lymphocytes % 33 % Monocytes % 8 % Eosinophils % 4 % Basophils % 1 % Neutrophils # 2.1 (1.3-7.7) k/uL Lymphocytes # 1.3 (1.0-4.8) k/uL Monocytes # 0.3 (0-1.0) k/uL Eosinophils # 0.1 (0-0.7) k/uL Basophils # 0.0 (0-0.2) k/uL Sodium 144 (137-145) mmol/L Potassium 3.8 (3.5-5.1) mmol/L Chloride 106 (98-107) mmol/L Carbon Dioxide 27 (22-30) mmol/L Anion Gap 11 mmol/L BUN 10 (9-20) mg/dL Creatinine 0.83 (0.66-1.25) mg/dL Est GFR (CKD-EPI)AfAm >90 (>60 ml/min/1.73 sqM) Est GFR (CKD-EPI)NonAf >90 (>60 ml/min/1.73 sqM) Glucose 83 (74-99) mg/dL Calcium 9.9 (8.4-10.2) mg/dL Total Bilirubin 0.9 (0.2-1.3) mg/dL AST 23 (17-59) U/L ALT 20 L (21-72) U/L Alkaline Phosphatase 56 (38-126) U/L Total Protein 7.9 (6.3-8.2) g/dL Albumin 5.0 (3.5-5.0) g/dL Amylase 59 (30-110) U/L Lipase 36 (23-300) U/L Urine Color Yellow Urine Appearance Clear (Clear) Urine pH 6.5 (5.0-8.0) Ur Specific [place] 1.028 (1.001-1.035) Urine Protein 1+ H (Negative) Urine Glucose (UA) Negative (Negative) Urine Ketones Trace H (Negative) Urine Blood Moderate H (Negative) Urine Nitrite Negative (Negative) Urine Bilirubin Negative (Negative) Urine Urobilinogen 4.0 (<2.0) mg/dL Ur Leukocyte Esterase Moderate H (Negative) Urine RBC >182 H (0-5) /hpf Urine WBC 36 H (0-5) /hpf Calcium Oxalate Crystal Rare H (None) /hpf Urine Bacteria Rare H (None) /hpf Urine Mucus Occasional H (None) /hpf Disposition Clinical Impression: Hematuria, Left flank pain Disposition: HOME SELF-CARE Condition: Stable Instructions (If sedation given, give patient instructions): Kidney Stones (ED), Abdominal Pain (ED) Prescriptions: Tamsulosin [Flomax] 0.4 mg PO DAILY #7 cap Ondansetron Odt [Zofran Odt] 4 mg PO Q8HR PRN #10 tab PRN Reason: Nausea Is patient prescribed a controlled substance at d/c from ED?: No Referrals: Mariam Rodríguez MD [Primary Care Provider] - 1-2 days Didier Carvalho MD [STAFF PHYSICIAN] - 1-2 days Time of Disposition: 17:56
[2019-01-06 16:34] LABS: Basophils % (A) 1 %; Eosinophils # (A) 0.1 k/uL (0-0.7); Eosinophils % (A) 4 %; HCT 41.3 % (39.0-53.0); HGB 14.7 gm/dL (13.0-17.5); Lymphocytes # (A) 1.3 k/uL (1.0-4.8); Lymphocytes % (A) 33 %; MCHC 35.5 g/dL (31.0-37.0); MCV 87.3 fL (80.0-100.0); Mean Platelet Volume 6.2; Monocytes # (A) 0.3 k/uL (0-1.0); Monocytes % (A) 8 %; Neutrophils # (A) 2.1 k/uL (1.3-7.7); Neutrophils % (A) 52 %; Platelet Count 208 k/uL (150-450); RBC 4.73 m/uL (4.30-5.90); RDW 12.3 % (11.5-15.5)
[2019-01-06 16:56] LABS: ALT 20 U/L (21-72); AST 23 U/L (17-59); African American GFR (CKD) >90 (>60 ml/min/1.73 sqM); Alkaline Phosphatase 56 U/L (38-126); Amylase 59 U/L (30-110); Anion Gap 11 mmol/L; Blood Urea Nitrogen 10 mg/dL (9-20); Calcium 9.9 mg/dL (8.4-10.2); Carbon Dioxide 27 mmol/L (22-30); Chloride 106 mmol/L (98-107); Glucose 83 mg/dL (74-99); Non-African American GFR(CKD) >90 (>60 ml/min/1.73 sqM); Potassium 3.8 mmol/L (3.5-5.1); Sodium 144 mmol/L (137-145); Total Bilirubin 0.9 mg/dL (0.2-1.3); Total Protein 7.9 g/dL (6.3-8.2)
[2019-01-06 17:08] LABS: Appearance,Urine Clear (Clear); Bacteria,Urine Rare /hpf; Bilirubin,Urine Negative (Negative); Blood,Urine Moderate (Negative); Calcium Oxalate Crystals,Urine Rare /hpf; Color,Urine Yellow; Glucose,Urine (UA) Negative (Negative); Ketones,Urine Trace (Negative); Leukocyte Esterase,Urine Moderate (Negative); Mucus,Urine Occasional /hpf; Nitrite,Urine Negative (Negative); PH, Urine 6.5 (5.0-8.0); Protein,Urine 1+ (Negative); RBC,Urine >182 /hpf (0-5); Specific Gravity,Urine 1.028 (1.001-1.035)
[2019-01-06] MEDS ORDERED: ONDANSETRON 4 MG ODT STARTER PACK 2 TAB BTL PO STA (17:55)
[2019-01-06] MEDS ORDERED: ACET/COD 300 MG/30 MG STARTER PACK 6 TAB BTL PO STA (18:03)
== END 2019-01-06 18:30 | disposition home or self-care (01) ==
LOC: EC 15:58
DX: R10.32 Left lower quadrant pain (principal); R31.9 Hematuria, unspecified; J45.909 Unspecified asthma, uncomplicated; F41.9 Anxiety disorder, unspecified; F32.9 Major depressive disorder, single episode, unspecified; F17.200 Nicotine dependence, unspecified, uncomplicated; Z85.6 Personal history of leukemia; Z79.51 Long term (current) use of inhaled steroids; Z79.899 Other long term (current) drug therapy; Z91.048 Other nonmedicinal substance allergy status; Z87.442 Personal history of urinary calculi
CPT/HCPCS: 36415; 80053; 82150; 83690; 85025; 81001; 87491; 87591; 87086; 99284; 96374; 96375 ×2; 96361; J2405; J2270; S0119; C9113

== ENCOUNTER → 2019-01-14 | Outpatient (CLI) | payer OTHER ==
--- NOTE | 2019-01-14 10:45 | XR ---
EXAMINATION TYPE: XR KUB DATE OF EXAM: 01/14/2019 10:39 AM CLINICAL HISTORY: Left-sided abdominal pain and hematuria TECHNIQUE: Single supine KUB image of the abdomen is obtained. COMPARISON: None. FINDINGS: Scattered gas is seen in nondilated small bowel loops. Gas and fecal material is seen in no ndilated colon. No abnormal calcification seen. There is no gross evidence of pneumoperitoneum. The l baylee bases are clear and the osseous structures are intact. IMPRESSION: 1. No radiopaque calcifications are seen in the abdomen or pelvis in this patient with left-sided manoj n and hematuria. 2. Nonobstructive bowel gas pattern.
== END | disposition home or self-care (01) ==
LOC: RADXRMAIN 10:28
PROVIDERS: ATTEND Family Medicine
DX: R10.9 Unspecified abdominal pain (principal); R31.0 Gross hematuria
CPT/HCPCS: 74018

== ENCOUNTER → 2019-01-27 | Outpatient (CLI) | payer OTHER ==
--- NOTE | 2019-01-27 11:36 | CT ---
EXAMINATION TYPE: CT abdomen wo/w con DATE OF EXAM: 01/27/2019 COMPARISON: Complete abdominal ultrasound May 25, 2018. KUB x-ray January 14, 2019. HISTORY: Left sided abdominal pain, hematuria CT DLP: 368.6 mGycm, Automated Exposure Control for Dose Reduction was Utilized. CONTRAST: CT scan of the abdomen is performed without oral and without and with IV Contrast, patient injected w ith 100 mL of Isovue 300. FINDINGS: LUNG BASES: No significant abnormality is appreciated. LIVER/GB: No significant abnormality is appreciated. PANCREAS: No significant abnormality is seen. SPLEEN: No significant abnormality is seen. ADRENALS: No significant abnormality is seen. KIDNEYS: Noncontrast images show faint density or calcification suspected 2 adjacent 2 mm calculi low er pole level axial image 30. Right kidney shows single 2 mm calculus lower pole level coronal image 33. There is symmetric cortical medullary uptake and excretion from both kidneys with asymmetric full ness to left greater than right renal pelvis is but no calyceal dilatation and no hydroureter or obst ructing calculi clearly seen. BOWEL: No evaluation is suboptimal due to lack of enteric contrast and patient having little intra- abdominal fat. LYMPH NODES: No greater than 1cm abdominal lymph nodes are appreciated. OSSEOUS STRUCTURES: No significant abnormality is seen. OTHER: No significant additional abnormality is seen. IMPRESSION: There are 1-2 small nonobstructing renal calculi bilaterally without hydronephrosis or ob structing ureteral calculi clearly seen. Suspect extrarenal pelvis slightly more prominent left kidne y versus right kidney.
== END | disposition home or self-care (01) ==
LOC: RADCTMAIN 09:12
PROVIDERS: ATTEND Family Medicine
DX: N20.0 Calculus of kidney (principal)
CPT/HCPCS: 74170; Q9967